=== PATIENT | female | born 1965 | race Two or more races ===

== ENCOUNTER 2021-04-06 11:15 | Inpatient (IN) | payer OTHER ==
[~2021-04-06] VITALS: Ht 177.8 cm; Wt 66.7 kg
[2021-04-06 11:51] LABS: Basophils # (auto) 0.1 10 ^3/uL (0-0.2); Basophils % (auto) 0.7 % (0.0-2.0); Eosinophils # (auto) 0.1 10 ^3/uL (0-0.8); Eosinophils % (auto) 0.8 % (0.0-7.0); Hematocrit 38.1 % (36.0-46.0); Hemoglobin 12.6 g/dL (12.2-16.2); Lymphocytes # (auto) 1.7 10 ^3/uL (0.4-5.4); Lymphocytes % (auto) 21.4 % (10.0-50.0); Mean Corpuscular Hemoglobin 28.7 pg (28.0-32.0); Mean Corpuscular Volume 87.1 fL (80.0-100.0); Monocytes # (auto) 0.8 10 ^3/uL (0-1.3); Monocytes % (auto) 9.5 % (0.0-12.0); Neutrophils # (auto) 5.4 10 ^3/uL (1.6-8.6); Neutrophils % (auto) 67.6 % (37.0-80.0); Nucleated Red Blood Cells % 0.1 %; Red Blood Cells 4.38 10^6/uL (4.0-5.20); Red Cell Distribution Width 18.8 % (11.8-14.3)
[2021-04-06 12:25] LABS: Albumin 2.7 g/dL (3.4-5.0); Calcium 9.2 mg/dL (8.5-10.1); Potassium 4.4 mmol/L (3.5-5.1)
[2021-04-06 12:28] LABS: BUN/Creatinine Ratio 21.2; Bilirubin, Total 2.4 mg/dL (0.2-1.0); Total Protein 7.7 g/dL (6.4-8.2)
[2021-04-06] MEDS ORDERED: ONDANSETRON HCL 4 MG/2 ML VIAL IV ONE (13:15)
[2021-04-06] MEDS ORDERED: MORPHINE SULFATE INJECTION 2 MG/ML SYRG IV ONE (13:15)
[2021-04-06] MEDS ORDERED: NITROGLYCERIN 0.4 MG SL TAB SL PRN (13:30)
[2021-04-06] MEDS ORDERED: MORPHINE SULFATE INJECTION 2 MG/ML SYRG IV PRN (13:30)
[2021-04-06] MEDS ORDERED: FUROSEMIDE 40 MG/4 ML VIAL IV ONE (17:00)
[2021-04-06] MEDS ORDERED: METOPROLOL SUCCINATE XL 50 MG TAB PO ONE (17:00)
[2021-04-06] MEDS ORDERED: hydrALAZINE HCL 20 MG/ML VL IV PRN (17:15)
[2021-04-06] MEDS ORDERED: ONDANSETRON HCL 4 MG/2 ML VIAL IV PRN (17:15)
[2021-04-06] MEDS ORDERED: IPRATROPIUM BROM 0.5 MG/2.5ML INH SOL NEB ONE (17:15)
[2021-04-06] MEDS ORDERED: MULTIPLE VITAMINS W/ MINERALS TAB PO ONE (17:15)
[2021-04-06] MEDS ORDERED: DOCUSATE SOD 100 MG CAP PO PRN (17:15)
[2021-04-06] MEDS ORDERED: LACTULOSE 20Gm/30ML SOLN PO PRN (17:15)
[2021-04-06] MEDS ORDERED: HYDROcodone-ACET 5/325MG TAB PO ONE (17:15)
[2021-04-06 18:00] VITALS: BP 86/66
[2021-04-06] MEDS ORDERED: IPRATROPIUM BROM 0.5 MG/2.5ML INH SOL NEB SCH (18:00)
[2021-04-06] MEDS ORDERED: cefTRIAXone 1GM/50ML D5W 50 ML IV ONE (18:30)
[2021-04-06 18:57] LABS: Magnesium 2.2 mg/dL (1.6-2.6); Phosphorus 3.8 mg/dL (2.5-4.90)
[2021-04-06] MEDS ORDERED: IPRATROPIUM BROM 0.5 MG/2.5ML INH SOL NEB PRN (19:00)
[2021-04-06 20:30] VITALS: BP 89/68
[2021-04-06 21:37] VITALS: BP 89/68
[2021-04-06] MEDS: POTASSIUM CHL 20 Meq TABLET PO SCH (22:35)
[2021-04-06] MEDS: ATORVASTATIN 20 MG TAB PO SCH (22:35)
[2021-04-06] MEDS ORDERED: LOS25T PO (23:08)
[2021-04-06] MEDS ORDERED: SPIR25TA8 PO (23:08)
[2021-04-06] MEDS ORDERED: FURO40TA4 PO (23:08)
[2021-04-06] MEDS ORDERED: CARV3.1240 PO (23:08)
[2021-04-06] MEDS ORDERED: ASPI-487 PO (23:08)
[2021-04-07 04:37] LABS: Alcohol, Urine < 3.0 mg/dL (0-10); Amphetamine Screen, Urine NEGATIVE (NEGATIVE); Barbiturate Scree,Urine NEGATIVE (NEGATIVE); Benzodiazephine Screen, Urine NEGATIVE (NEGATIVE); Cannabinoid Screen, Urine NEGATIVE (NEGATIVE); Cocaine Screen, Urine POSITIVE (NEGATIVE); Opiate Scree,Urine POSITIVE (NEGATIVE); Phencyclidine Screen, Urine NEGATIVE (NEGATIVE)
[2021-04-07 04:45] LABS: Urine Bacteria NONE SEEN /hpf (None Seen); Urine Blood Negative /uL (Negative); Urine Hyaline Cast MANY /lpf (0 - 2); Urine Mucus FEW (None Seen); Urine Specific Gravity 1.017 (1.001-1.035); Urine WBC 9 /hpf (0 - 5)
[2021-04-07 05:11] VITALS: BP 96/69
[2021-04-07] MEDS: FUROSEMIDE 40 MG/4 ML VIAL IV SCH ×2 (06:00→17:40)
[2021-04-07 06:18] LABS: Basophils # (auto) 0.1 10 ^3/uL (0-0.2); Eosinophils # (auto) 0.1 10 ^3/uL (0-0.8); Eosinophils % (auto) 1.6 % (0.0-7.0); Hematocrit 36.7 % (36.0-46.0); Hemoglobin 11.8 g/dL (12.2-16.2); Lymphocytes # (auto) 1.7 10 ^3/uL (0.4-5.4); Lymphocytes % (auto) 23.6 % (10.0-50.0); Mean Corpuscular Hemoglobin 28.8 pg (28.0-32.0); Mean Corpuscular Hgb Conc. 32.2 g/dL (32.0-36.0); Mean Corpuscular Volume 89.6 fL (80.0-100.0); Monocytes # (auto) 0.9 10 ^3/uL (0-1.3); Monocytes % (auto) 12.5 % (0.0-12.0); Neutrophils # (auto) 4.4 10 ^3/uL (1.6-8.6); Neutrophils % (auto) 61.3 % (37.0-80.0); Nucleated Red Blood Cells % 0.2 %; Red Cell Distribution Width 18.8 % (11.8-14.3); White Blood Cell 7.2 10^3/uL (4.4-10.8)
[2021-04-07 06:28] LABS: INR 1.36 (0.9-1.15); Partial Thromboplastin Time 27.1 sec (23.6-33.0)
[2021-04-07 06:40] LABS: Potassium 4.5 mmol/L (3.5-5.1)
[2021-04-07 07:02] LABS: Albumin 2.6 g/dL (3.4-5.0); BUN/Creatinine Ratio 22.2; Calcium 8.8 mg/dL (8.5-10.1); Magnesium 2.2 mg/dL (1.6-2.6); Total Protein 7.2 g/dL (6.4-8.2)
[2021-04-07 07:08] LABS: Phosphorus 4.1 mg/dL (2.5-4.90)
[2021-04-07 09:12] VITALS: BP 105/69
[2021-04-07] MEDS: MULTIPLE VITAMINS W/ MINERALS TAB PO SCH (09:43)
[2021-04-07] MEDS: ASPirin 81 mg TAB PO SCH (09:43)
[2021-04-07] MEDS: ENOXAPARIN SOD 40 MG/0.4 ML SYRINGE SC SCH (09:44)
[2021-04-07] MEDS: POTASSIUM CHL 20 Meq TABLET PO SCH (09:44)
[2021-04-07] MEDS: cefTRIAXone 1GM/50ML D5W 50 ML IV SCH (09:45)
[2021-04-07] MEDS: LOSARTAN POTASSIUM 25 MG TAB PO SCH (09:46)
[2021-04-07] MEDS: METOPROLOL SUCCINATE XL 50 MG TAB PO SCH (09:46)
[2021-04-07] MEDS: HYDROcodone-ACET 5/325MG TAB PO PRN (11:57)
[2021-04-07 12:40] VITALS: BP 94/67
[2021-04-07] MEDS ORDERED: DEXTROSE (50%) 50ML SYRG IV PRN (14:15)
[2021-04-07 16:57] VITALS: BP 97/63
[2021-04-07] MEDS: ACCU-CHEK COMFORT CURVE STRIP VI SCH ×2 (17:41→23:48)
[2021-04-07] MEDS: InsuLIN REG 1unit/0.01ml Soln (100units/ml) SC SCH ×2 (17:41→23:52)
[2021-04-07] MEDS: ATORVASTATIN 20 MG TAB PO SCH (21:36)
[2021-04-07 22:37] VITALS: BP 104/70
[2021-04-08 05:16] VITALS: BP 102/69
[2021-04-08] MEDS: FUROSEMIDE 40 MG/4 ML VIAL IV SCH ×2 (05:31→17:34)
[2021-04-08] MEDS: ACCU-CHEK COMFORT CURVE STRIP VI SCH ×3 (05:31→17:34)
[2021-04-08] MEDS: InsuLIN REG 1unit/0.01ml Soln (100units/ml) SC SCH ×3 (05:37→17:34)
[2021-04-08 07:34] LABS: Albumin 2.8 g/dL (3.4-5.0); BUN/Creatinine Ratio 24.6; Calcium 9.3 mg/dL (8.5-10.1); Potassium 4.8 mmol/L (3.5-5.1)
[2021-04-08 07:37] LABS: Bilirubin, Total 1.5 mg/dL (0.2-1.0); Total Protein 7.7 g/dL (6.4-8.2)
[2021-04-08 09:00] VITALS: BP 102/74
[2021-04-08] MEDS: cefTRIAXone 1GM/50ML D5W 50 ML IV SCH (09:00)
[2021-04-08] MEDS ORDERED: ALBUAER3 IN (09:25)
[2021-04-08] MEDS: ASPirin 81 mg TAB PO SCH (09:31)
[2021-04-08] MEDS: METOPROLOL SUCCINATE XL 50 MG TAB PO SCH (09:32)
[2021-04-08] MEDS: LOSARTAN POTASSIUM 25 MG TAB PO SCH (09:32)
[2021-04-08] MEDS: MULTIPLE VITAMINS W/ MINERALS TAB PO SCH (09:32)
[2021-04-08] MEDS: ENOXAPARIN SOD 40 MG/0.4 ML SYRINGE SC SCH (09:33)
[2021-04-08] MEDS: MORPHINE SULFATE INJECTION 2 MG/ML SYRG IV PRN ×2 (09:34→22:10)
[2021-04-08 13:00] VITALS: BP 107/78
[2021-04-08] MEDS ORDERED: ERGOCALCIFEROL 50,000 UNIT(1.25MG) CAP PO ONE (14:00)
[2021-04-08 17:00] VITALS: BP 109/82
[2021-04-08 21:45] VITALS: BP 108/74
[2021-04-08] MEDS: ATORVASTATIN 20 MG TAB PO SCH (22:09)
[2021-04-09] VITALS (7 sets, daily range): BP systolic 96–113; BP diastolic 58–77
[2021-04-09] MEDS: ACCU-CHEK COMFORT CURVE STRIP VI SCH ×4 (00:13→18:38)
[2021-04-09] MEDS: InsuLIN REG 1unit/0.01ml Soln (100units/ml) SC SCH ×4 (00:18→18:35)
[2021-04-09 06:05] LABS: Basophils # (auto) 0 10 ^3/uL (0-0.2); Basophils % (auto) 0.8 % (0.0-2.0); Eosinophils # (auto) 0.1 10 ^3/uL (0-0.8); Eosinophils % (auto) 1.1 % (0.0-7.0); Hematocrit 39.1 % (36.0-46.0); Hemoglobin 12.8 g/dL (12.2-16.2); Lymphocytes # (auto) 1.5 10 ^3/uL (0.4-5.4); Lymphocytes % (auto) 23.6 % (10.0-50.0); Mean Corpuscular Hemoglobin 28.9 pg (28.0-32.0); Mean Corpuscular Hgb Conc. 32.7 g/dL (32.0-36.0); Mean Corpuscular Volume 88.4 fL (80.0-100.0); Monocytes # (auto) 0.8 10 ^3/uL (0-1.3); Monocytes % (auto) 12.9 % (0.0-12.0); Neutrophils # (auto) 3.9 10 ^3/uL (1.6-8.6); Neutrophils % (auto) 61.6 % (37.0-80.0); Nucleated Red Blood Cells % 0.2 %; Red Blood Cells 4.43 10^6/uL (4.0-5.20); Red Cell Distribution Width 18.8 % (11.8-14.3); White Blood Cell 6.3 10^3/uL (4.4-10.8)
[2021-04-09 06:23] LABS: Albumin 2.6 g/dL (3.4-5.0); Potassium 4.3 mmol/L (3.5-5.1)
[2021-04-09 06:27] LABS: BUN/Creatinine Ratio 33.6; Bilirubin, Total 1.2 mg/dL (0.2-1.0); Calcium 9.4 mg/dL (8.5-10.1); Total Protein 7.5 g/dL (6.4-8.2)
[2021-04-09] MEDS: FUROSEMIDE 40 MG/4 ML VIAL IV SCH ×2 (06:36→18:21)
[2021-04-09] MEDS: cefTRIAXone 1GM/50ML D5W 50 ML IV SCH (09:00)
[2021-04-09] MEDS: ASPirin 81 mg TAB PO SCH (09:52)
[2021-04-09] MEDS: MULTIPLE VITAMINS W/ MINERALS TAB PO SCH (09:54)
[2021-04-09] MEDS: METOPROLOL SUCCINATE XL 50 MG TAB PO SCH (09:57)
[2021-04-09] MEDS: LOSARTAN POTASSIUM 25 MG TAB PO SCH (10:00)
[2021-04-09] MEDS: ENOXAPARIN SOD 40 MG/0.4 ML SYRINGE SC SCH (10:00)
[2021-04-09] MEDS ORDERED: CHOLECALCIFEROL (VITD3) 2,000 UNIT CAP/TAB PO SCH (10:00)
[2021-04-09] MEDS ORDERED: MORPHINE SULFATE 4 MG/ML SYR/VIAL IV PRN (12:15)
[2021-04-09] MEDS: HYDROcodone-ACET 5/325MG TAB PO PRN ×2 (12:46→18:21)
[2021-04-09] MEDS: CARVEDILOL 3.125 MG TAB PO SCH (22:00)
[2021-04-09] MEDS: ATORVASTATIN 20 MG TAB PO SCH (22:00)
[2021-04-10 05:11] VITALS: BP 90/58
[2021-04-10 05:41] LABS: Magnesium 1.7 mg/dL (1.6-2.6); Potassium 4.1 mmol/L (3.5-5.1)
[2021-04-10 05:44] LABS: Calcium 9.2 mg/dL (8.5-10.1)
[2021-04-10] MEDS: FUROSEMIDE 40 MG/4 ML VIAL IV SCH ×2 (06:00→18:00)
[2021-04-10] MEDS: ACCU-CHEK COMFORT CURVE STRIP VI SCH ×4 (06:27→17:59)
[2021-04-10] MEDS: InsuLIN REG 1unit/0.01ml Soln (100units/ml) SC SCH ×4 (06:30→17:59)
[2021-04-10] MEDS: HYDROcodone-ACET 5/325MG TAB PO PRN (06:32)
[2021-04-10 08:00] VITALS: BP 94/59
[2021-04-10] MEDS: cefTRIAXone 1GM/50ML D5W 50 ML IV SCH (09:00)
[2021-04-10] MEDS: CHOLECALCIFEROL (VITD3) 2,000 UNIT CAP/TAB PO SCH (10:00)
[2021-04-10] MEDS: LOSARTAN POTASSIUM 25 MG TAB PO SCH (10:00)
[2021-04-10] MEDS: CARVEDILOL 3.125 MG TAB PO SCH ×2 (10:00→21:13)
[2021-04-10] MEDS: MULTIPLE VITAMINS W/ MINERALS TAB PO SCH (10:00)
[2021-04-10] MEDS: ASPirin 81 mg TAB PO SCH (10:00)
[2021-04-10] MEDS: ENOXAPARIN SOD 40 MG/0.4 ML SYRINGE SC SCH (10:00)
[2021-04-10 12:00] VITALS: BP 95/64
[2021-04-10 16:00] VITALS: BP 107/72
[2021-04-10] MEDS: ATORVASTATIN 20 MG TAB PO SCH (21:13)
[2021-04-10] MEDS: LORazepam 0.5 MG TAB PO PRN (21:17)
[2021-04-10 21:49] VITALS: BP 99/59
[2021-04-11] VITALS (8 sets, daily range): BP systolic 94–112; BP diastolic 60–97
[2021-04-11] MEDS: ACCU-CHEK COMFORT CURVE STRIP VI SCH ×4 (00:09→17:58)
[2021-04-11] MEDS: InsuLIN REG 1unit/0.01ml Soln (100units/ml) SC SCH ×4 (00:15→17:59)
[2021-04-11] MEDS: FUROSEMIDE 40 MG/4 ML VIAL IV SCH ×2 (05:15→17:57)
[2021-04-11] MEDS: ASPirin 81 mg TAB PO SCH (09:48)
[2021-04-11] MEDS: cefTRIAXone 1GM/50ML D5W 50 ML IV SCH (09:48)
[2021-04-11] MEDS: LOSARTAN POTASSIUM 25 MG TAB PO SCH (09:49)
[2021-04-11] MEDS: MULTIPLE VITAMINS W/ MINERALS TAB PO SCH (09:50)
[2021-04-11] MEDS: CARVEDILOL 3.125 MG TAB PO SCH ×2 (09:50→21:29)
[2021-04-11] MEDS: CHOLECALCIFEROL (VITD3) 2,000 UNIT CAP/TAB PO SCH (09:51)
[2021-04-11] MEDS: ENOXAPARIN SOD 40 MG/0.4 ML SYRINGE SC SCH (09:51)
[2021-04-11] MEDS: HYDROcodone-ACET 5/325MG TAB PO PRN (17:59)
[2021-04-11] MEDS: ATORVASTATIN 20 MG TAB PO SCH (21:30)
[2021-04-11] MEDS: LORazepam 0.5 MG TAB PO PRN (21:30)
[2021-04-12] MEDS: ACCU-CHEK COMFORT CURVE STRIP VI SCH ×4 (00:25→17:35)
[2021-04-12] MEDS: InsuLIN REG 1unit/0.01ml Soln (100units/ml) SC SCH ×4 (00:30→17:41)
[2021-04-12 05:00] VITALS: BP 99/65
[2021-04-12] MEDS: FUROSEMIDE 40 MG/4 ML VIAL IV SCH ×2 (05:11→17:41)
[2021-04-12] MEDS: ASPirin 81 mg TAB PO SCH (08:18)
[2021-04-12] MEDS: cefTRIAXone 1GM/50ML D5W 50 ML IV SCH (08:18)
[2021-04-12] MEDS: MULTIPLE VITAMINS W/ MINERALS TAB PO SCH (08:18)
[2021-04-12] MEDS: CHOLECALCIFEROL (VITD3) 2,000 UNIT CAP/TAB PO SCH (08:19)
[2021-04-12] MEDS: ENOXAPARIN SOD 40 MG/0.4 ML SYRINGE SC SCH (08:19)
[2021-04-12 08:30] VITALS: BP 92/54
[2021-04-12] MEDS: CARVEDILOL 3.125 MG TAB PO SCH ×2 (08:34→22:03)
[2021-04-12] MEDS: LOSARTAN POTASSIUM 25 MG TAB PO SCH (08:36)
[2021-04-12 12:30] VITALS: BP 105/67
[2021-04-12 17:00] VITALS: BP 102/62
[2021-04-12 22:00] VITALS: BP 112/69
[2021-04-12] MEDS: ATORVASTATIN 20 MG TAB PO SCH (22:01)
[2021-04-12] MEDS: LORazepam 0.5 MG TAB PO PRN (22:06)
[2021-04-13] MEDS: ACCU-CHEK COMFORT CURVE STRIP VI SCH ×3 (00:41→12:00)
[2021-04-13] MEDS: InsuLIN REG 1unit/0.01ml Soln (100units/ml) SC SCH ×3 (00:41→12:00)
[2021-04-13 05:00] VITALS: BP 108/74
[2021-04-13] MEDS: FUROSEMIDE 40 MG/4 ML VIAL IV SCH (05:25)
[2021-04-13 09:00] VITALS: BP 101/62
[2021-04-13] MEDS: CHOLECALCIFEROL (VITD3) 2,000 UNIT CAP/TAB PO SCH (09:19)
[2021-04-13] MEDS: ASPirin 81 mg TAB PO SCH (09:20)
[2021-04-13] MEDS: MULTIPLE VITAMINS W/ MINERALS TAB PO SCH (09:21)
[2021-04-13] MEDS: CARVEDILOL 3.125 MG TAB PO SCH ×2 (09:31→12:27)
[2021-04-13] MEDS: ENOXAPARIN SOD 40 MG/0.4 ML SYRINGE SC SCH (09:37)
[2021-04-13] MEDS: cefTRIAXone 1GM/50ML D5W 50 ML IV SCH (09:39)
[2021-04-13] MEDS ORDERED: DIGOXIN 0.125 MG TAB PO SCH (10:00)
[2021-04-13] MEDS ORDERED: SPIRONOLACTONE 25 MG TAB PO SCH (10:00)
[2021-04-13] MEDS ORDERED: SPIR25TA8 PO (12:12)
[2021-04-13] MEDS ORDERED: FURO40TA4 PO (12:12)
[2021-04-13] MEDS ORDERED: ASPI-487 PO (12:12)
[2021-04-13] MEDS ORDERED: LOS25T PO (12:12)
[2021-04-13] MEDS ORDERED: ALBUAER3 IN (12:12)
[2021-04-13] MEDS ORDERED: CHOL20007 PO (12:12)
[2021-04-13] MEDS ORDERED: CARV3.1240 PO (12:12)
[2021-04-13] MEDS ORDERED: DIGO0.12 PO (12:12)
[2021-04-13] MEDS ORDERED: GLIP-218 PO (12:24)
[2021-04-13 13:00] VITALS: BP 97/67
[2021-04-13] MEDS: LOSARTAN POTASSIUM 25 MG TAB PO SCH (15:02)
[2021-04-13 17:00] VITALS: BP 98/60
== END 2021-04-13 17:30 | disposition home or self-care (01) | DRG 291 ==
LOC: EDBD 11:15 → ER 11:15 → TELE 13:18 → TELE-WESTW 19:48
PROVIDERS: ADMIT Hospitalist; ATTEND Internal Medicine
DX: I13.0 Hypertensive heart and chronic kidney disease with heart failure and stage 1 through stage 4 chronic kidney disease, or unspecified chronic kidney disease (principal); I50.43 Acute on chronic combined systolic (congestive) and diastolic (congestive) heart failure; N17.0 Acute kidney failure with tubular necrosis; I24.9 Acute ischemic heart disease, unspecified; N39.0 Urinary tract infection, site not specified; J98.11 Atelectasis; I42.7 Cardiomyopathy due to drug and external agent; I25.10 Atherosclerotic heart disease of native coronary artery without angina pectoris; E11.22 Type 2 diabetes mellitus with diabetic chronic kidney disease; Z20.822 Contact with and (suspected) exposure to COVID-19; E55.9 Vitamin D deficiency, unspecified; E66.01 Morbid (severe) obesity due to excess calories; E78.5 Hyperlipidemia, unspecified; F14.90 Cocaine use, unspecified, uncomplicated; N18.9 Chronic kidney disease, unspecified; Z80.1 Family history of malignant neoplasm of trachea, bronchus and lung; Z68.21 Body mass index [BMI] 21.0-21.9, adult; Z91.19 Patient's noncompliance with other medical treatment and regimen
CPT/HCPCS: 36415; 36600; 71045; 76705; 80048; 80053; 80061; 80307; 81001; 82306; 82728; 82805; 82962; 83036; 83735; 83880; 84100; 84443; 84484; 85025; 85379; 85610; 85730; 87040; 87070; 87086; 87205; 93005; 93306; 94640; 96374; 96375; 97110; 97116; 97163; 97530; G0378; J0696; J1815; J2405